=== PATIENT | female | born 1965 | race Caucasian/White ===

== ENCOUNTER 2018-12-26 21:59 | Emergency (ER) | payer MEDICARE ==
[~2018-12-26] VITALS: Ht 162.6 cm; Wt 59.1 kg
[~2018-12-26 21:59] MED LIST: ALPR-624 PO; AMITRIPTYLINE; HYDR-4353 PO; OMEP40CA13 PO; THYR60TA PO; TOP100T PO
[2018-12-26] MEDS ORDERED: ALPR-624 PO (22:27)
[2018-12-26] MEDS ORDERED: AMPH10TA2 PO (22:27)
[2018-12-26] MEDS ORDERED: ONDA4TAB12 PO (22:27)
[2018-12-26] MEDS ORDERED: BUPR1PAT TOP (23:09)
[2018-12-26 23:24] LABS: BASOPHILS % (AUTO) 0.5 % (0-1); EOSINOPHILS % (AUTO) 0.6 % (0-6); HEMATOCRIT 38.3 % (35.0-45.0); HEMOGLOBIN 13.3 g/dl (12.0-16.0); LYMPHOCYTES # (AUTO) 2.3 X10'3 (1.1-4.8); LYMPHOCYTES % (AUTO) 36.6 % (21-51); MEAN CORPUSCULAR HEMOGLOBIN 30.9 PG (27.0-31.0); MEAN CORPUSCULAR HGB CONC 34.7 g/dL (33.0-36.5); MEAN CORPUSCULAR VOLUME 88.9 FL (78-98); MEAN PLATELET VOLUME 7.1 FL (7.4-10.4); MONOCYTES # (AUTO) 0.5 X10'3 (0-0.9); MONOCYTES % (AUTO) 7.3 % (2-12); NEUTROPHILS # (AUTO) 3.5 X10'3 (1.8-7.7); PLATELET COUNT 254 X10'3 (140-440); RED CELL DISTRIBUTION WIDTH 13.8 % (11.5-14.5); WHITE BLOOD COUNT 6.4 X10'3 (4.5-11.0)
[2018-12-26] MEDS ORDERED: LIDOcaine 1% w/EPI 1:200,000 injection 10mL vial IM ONE (23:30)
[2018-12-26] MEDS ORDERED: LIDOcaine 1% W/epiNEPHrine 1:100,000 20ml vial IJ ONE (23:30)
[2018-12-26 23:46] LABS: ALANINE AMINOTRANSFERASE 23 U/L (12-78); ALBUMIN 3.7 G/DL (3.4-5.0); ALBUMIN/GLOBULIN RATIO 1.1 (1.1-1.5); ALKALINE PHOSPHATASE 73 IU/L (46-116); ANION GAP 9 (8-16); ASPARTATE AMINO TRANSFERASE 38 U/L (10-37); BILIRUBIN,TOTAL 0.1 MG/DL (0.1-1.0); BLOOD UREA NITROGEN 11 MG/DL (7-18); BUN/CREATININE RATIO 15.7 (6.6-38.0); CALCIUM 8.5 MG/DL (8.5-10.1); CHLORIDE 109 MMOL/L (99-107); ETHANOL 0.138 GM/DL (0.0-0.010); GLUCOSE 91 MG/DL (70-104); POTASSIUM 3.6 MMOL/L (3.5-5.1); SODIUM 146 MMOL/L (135-145); TOTAL CARBON DIOXIDE 27.8 MMOL/L (24-32); TOTAL PROTEIN 7.2 G/DL (6.4-8.2); eGFR 88 ML/MIN
[2018-12-27 00:06] LABS: URINE HCG NEGATIVE (NEG)
[2018-12-27 00:18] LABS: URINE AMPHETAMINE SCREEN NEGATIVE (Neg); URINE BARBITUATE SCREEN NEGATIVE (Neg); URINE BENZODIAZEPINES SCREEN POSITIVE (Neg); URINE CANNABINOID SCREEN NEGATIVE (Neg); URINE COCAINE SCREEN NEGATIVE (Neg); URINE METHADONE SCREEN NEGATIVE (Neg); URINE OPIATE SCREEN NEGATIVE (Neg); URINE PHENCYCLIDINE SCREEN NEGATIVE (Neg)
[2018-12-27] MEDS ORDERED: ondansetron 4mg rapidly disintigrating tab PO PRN (01:05)
--- NOTE | 2018-12-27 01:09 | NUR ---
Received report from NOAM Casey.
--- NOTE | 2018-12-27 01:13 | NUR ---
Pt moved to ED overflow bed 21 by NOAM Gonzalez.
--- NOTE | 2018-12-27 01:13 | NUR ---
The patient ambulated to bed 21 with steady gait. She was accompanied by NOAM Casey. The patient is in green scrubs and is oriented to the unit. She has been provided a pitcher of water and warm blankets.
--- NOTE | 2018-12-27 01:28 | NUR ---
Pt given fresh water, orientated to unit and given warm blankets for comfort.
--- NOTE | 2018-12-27 02:36 | NUR ---
The patient is sleeping on her right side. No distress noted.
--- NOTE | 2018-12-27 03:51 | NUR ---
PATIENT'S PACKET WAS SENT TO [facility] AT 01:25AM
--- NOTE | 2018-12-27 05:37 | NUR ---
The patient is sleeping in the supine position. Resp. unlabored. No s/s of distress.
--- NOTE | 2018-12-27 06:55 | NUR ---
Report received from Jean. SANTACRUZ. Pt is resting in bed peacefully at this time with no distress observed . Will conitnue to monitor.
--- NOTE | 2018-12-27 08:29 | NUR ---
Pt is sitting in bed eating breakfast. She denies needs at this time. No distress observed. Will conitnue to monitor.
[2018-12-27] MEDS ORDERED: ibuprofen 200mg tablet PO ONE (08:45)
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
--- NOTE | 2018-12-27 10:55 | NUR ---
Pt is in bed speaking to Shereen [facility] clinician. No distress noted. Will abimael Addendum: 12/27/18 at 1107 by GREGORY Will continue to monitor.
--- NOTE | 2018-12-27 11:29 | NUR ---
breaking the assisgned nurse at this time,pt resting in bed quietly no distress noted .
--- NOTE | 2018-12-27 12:31 | NUR ---
Pt is resting in bed peacefully at th is time. No distress observed. Will continue to monitor.
--- NOTE | 2018-12-27 14:30 | NUR ---
pT IS RESTING IN BED PEACEFULLY. NO DISTRESS OBSERVED Addendum: 12/27/18 at 1519 by GREGORY PT IS RESTING IN BED PEACEFULLY AT THIS TIME. NO DISTRESS OBSERVED. PT ATE ALL OF HER LUNCH. WILL CONTINUE TO MONITOR.
--- NOTE | 2018-12-27 15:19 | NUR ---
PT'S DAUGHTER AND MOTHER ARE AT BEDSIDE VISITING.
--- NOTE | 2018-12-27 17:10 | NUR ---
Pt is sitting up in bed visiting with male visitor. Received phone call from [facility] charger, [place], and Dr. Coon has accepted this Pt to be admitted to the [facility] floor. Pt is agreeable to this. Will continue to monitor.
[2018-12-27 17:46] VITALS: BP 138/76
--- NOTE | 2018-12-27 18:30 | NUR ---
Received report and assumed care of patient from NOAM Hernandez.
--- NOTE | 2018-12-27 19:46 | NUR ---
The patient appears to be asleep on her right side. Resp. unlabored. No s/s of distress.
[2018-12-27] MEDS ORDERED: ALPRAZolam 0.5mg tablet PO SCH (21:00)
[2018-12-29] MEDS ORDERED: BUPRENORPHINE 15 MCG/HR TP SCH (08:00)
== END 2018-12-27 20:52 ==
LOC: ER 21:59
DX: S51.812A Laceration without foreign body of left forearm, initial encounter (principal); R45.851 Suicidal ideations; I10 Essential (primary) hypertension; E03.9 Hypothyroidism, unspecified; G43.909 Migraine, unspecified, not intractable, without status migrainosus; F41.9 Anxiety disorder, unspecified; F43.10 Post-traumatic stress disorder, unspecified; Z88.6 Allergy status to analgesic agent; Z88.1 Allergy status to other antibiotic agents; Z79.899 Other long term (current) drug therapy; Z86.73 Personal history of transient ischemic attack (TIA), and cerebral infarction without residual deficits; Z86.718 Personal history of other venous thrombosis and embolism; Z98.51 Tubal ligation status; X78.8XXA Intentional self-harm by other sharp object, initial encounter; Y93.89 Activity, other specified; Y92.89 Other specified places as the place of occurrence of the external cause; Y99.8 Other external cause status
CPT/HCPCS: 12001; 12004; 12032; 36415; 80053; 80305; 80320; 81025; 85025; 99285

== ENCOUNTER 2018-12-27 20:47 | Inpatient (IN) | payer MEDICARE, OTHER ==
[~2018-12-27] VITALS: Ht 160 cm; Wt 63.9 kg
[~2018-12-27 20:47] MED LIST changes: -AMITRIPTYLINE; +AMPH10TA2 PO; +BUPR1PAT TOP; -HYDR-4353 PO; -OMEP40CA13 PO; +ONDA4TAB12 PO; -THYR60TA PO; -TOP100T PO
[2018-12-27] MEDS ORDERED: magnesium hydroxide 30ml (MOM) UD suspension PO PRN (21:20)
[2018-12-27] MEDS ORDERED: mag hydrox/Alum hydrox/simeth 30ml oral suspension PO PRN (21:20)
[2018-12-27] MEDS ORDERED: acetaminophen 325mg tablet PO PRN ×2 (21:20)
[2018-12-27] MEDS ORDERED: loperamide 2mg capsule PO PRN (21:20)
[2018-12-27] MEDS ORDERED: LORazepam 0.5 MG tablet PO PRN (21:40)
[2018-12-27] MEDS ORDERED: ondansetron 4mg rapidly disintigrating tab PO PRN (22:25)
[2018-12-28 00:10] VITALS: BP 145/84
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
[2018-12-28 07:29] LABS: HEMOGLOBIN A1C 5.2 % (4.5-6.2)
[2018-12-28 08:00] VITALS: BP 120/72
[2018-12-28] MEDS ORDERED: dextroamphetamine/amphetamine 10mg tablet PO SCH (08:00)
--- NOTE | 2018-12-28 09:52 | NUR ---
Malnutrition consult: Patient's wt is stable with documented wt hx of 70.5 kg 06/02/15 and 64.7 kg 09/30/16, current documented wt is 63.9 kg and all weights were obtained with standing scale. Pt currently on vegan diet documented with average 50% PO intake firt meal. Per RN notes pt with more frequent memory loss and is currently documented as confused. Pt with no decrease in muscle strength and no edema. Pt currently does not meet criteria for malnutrition at this time. Will continue to follow. Addendum: 12/28/18 at [address] Amended: Links added.
[2018-12-28 09:56] LABS: CHOL/HDL RATIO 3.2 (0.00-4.99); CHOLESTEROL 214 MG/DL (0-200); HDL CHOLESTEROL 66 MG/DL (35-60); LDL CHOLESTEROL 119 MG/DL (50-100); TRIGLYCERIDES 181 MG/DL (20-135)
--- NOTE | 2018-12-28 16:39 | NUR ---
Met with Ct to complete Psychosocial Assessment. She denied any current SI. She reported she wants to return home in the next day or two. She reported she may stay with her mother for a couple days before returning to her home. She reported she sees a therapist at the [facility] for EMDR and sees Susie Nina at [facility] for her medications. She thinks she has an upcoming appt at [facility]. GARCÍA Gallagher
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
[2018-12-28] MEDS: hydrOXYzine 25 MG tablet PO PRN (17:27)
[2018-12-28] MEDS ORDERED: ibuprofen tablet 400 MG TABLET PO PRN (19:35)
[2018-12-28 20:00] VITALS: BP 117/71
[2018-12-28] MEDS ORDERED: ALPRAZolam 0.5mg tablet PO SCH (21:00)
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
[2018-12-29 07:54] VITALS: BP 141/62
[2018-12-29] MEDS: SUMAtriptan 25 MG tablet PO PRN ×2 (15:00→15:19)
--- NOTE | 2018-12-29 15:44 | NUR ---
Called [facility] to make follow up appt for Ct. Ct already has an appt with Susie Nina on 01/11/19 at 10:15 am. GARCÍA Gallagher
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
[2018-12-29 20:06] VITALS: BP 138/78
[2018-12-29] MEDS: hydrOXYzine 25 MG tablet PO PRN (20:17)
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
[2018-12-30] MEDS ORDERED: LORazepam 1 MG tablet PO ONE (01:15)
[2018-12-30] MEDS ORDERED: temazepam 15mg capsule PO PRN (01:15)
[2018-12-30 07:39] VITALS: BP 126/72
[2018-12-30] MEDS ORDERED: BUTRANS 15 MCG/HR TOP SCH (08:25)
--- NOTE | 2018-12-30 14:50 | NUR ---
Nursing Discharge Note Patient is escorted off the unit at 1435 accompanied by this RN and patients mother Leigha. Patient will be transported home by her mother. All valuables, including medications are provided back to patient. Followup instructions are gone over with patient and printed handout provided. Patient states that she feels good and feels comfortable going home today. Patients mood is happy and her affect is bright, she has improved since admit. Patient is not under any physical or emotional distress. Nicotine replacement not provided as patient is not a smoker.
== END 2018-12-30 14:35 | disposition home or self-care (01) | DRG 881 ==
LOC: ADULT MH 20:47
PROVIDERS: ADMIT Psychiatry & Neurology Psychiatry; ATTEND Psychiatry & Neurology Psychiatry
DX: F32.9 Major depressive disorder, single episode, unspecified (principal); E87.0 Hyperosmolality and hypernatremia; A69.20 Lyme disease, unspecified; F43.10 Post-traumatic stress disorder, unspecified; F41.1 Generalized anxiety disorder; G43.909 Migraine, unspecified, not intractable, without status migrainosus; F41.0 Panic disorder [episodic paroxysmal anxiety]; E78.5 Hyperlipidemia, unspecified; Z86.73 Personal history of transient ischemic attack (TIA), and cerebral infarction without residual deficits; Z98.82 Breast implant status; Z87.442 Personal history of urinary calculi
CPT/HCPCS: 36415; 80053; 80061; 80305; 80320; 81025; 83036; 85025; 87081; Z7610

== ENCOUNTER 2019-01-16 19:09 | Emergency (ER) | payer MEDICARE ==
[~2019-01-16] VITALS: Ht 162.6 cm; Wt 60.5 kg
[2019-01-16 19:51] LABS: URINE HCG NEGATIVE (NEG)
[2019-01-16 19:56] LABS: BASOPHILS % (AUTO) 0.5 % (0-1); EOSINOPHILS # (AUTO) 0.1 X10'3 (0-0.9); HEMATOCRIT 40.3 % (35.0-45.0); HEMOGLOBIN 13.9 g/dl (12.0-16.0); LYMPHOCYTES % (AUTO) 33.3 % (21-51); MEAN CORPUSCULAR HEMOGLOBIN 30.9 PG (27.0-31.0); MEAN CORPUSCULAR HGB CONC 34.4 g/dL (33.0-36.5); MEAN CORPUSCULAR VOLUME 89.8 FL (78-98); MONOCYTES # (AUTO) 0.4 X10'3 (0-0.9); MONOCYTES % (AUTO) 6.8 % (2-12); NEUTROPHILS # (AUTO) 3.5 X10'3 (1.8-7.7); NEUTROPHILS % (AUTO) 58.4 % (42-75); PLATELET COUNT 302 X10'3 (140-440); RED BLOOD COUNT 4.49 X10'6 (4.20-5.60); RED CELL DISTRIBUTION WIDTH 13.5 % (11.5-14.5); WHITE BLOOD COUNT 6.1 X10'3 (4.5-11.0)
[2019-01-16 20:04] LABS: ALANINE AMINOTRANSFERASE 21 U/L (12-78); ALBUMIN 3.7 G/DL (3.4-5.0); ALKALINE PHOSPHATASE 71 IU/L (46-116); ANION GAP 9 (8-16); ASPARTATE AMINO TRANSFERASE 39 U/L (10-37); BILIRUBIN,TOTAL 0.1 MG/DL (0.1-1.0); BLOOD UREA NITROGEN 9 MG/DL (7-18); BUN/CREATININE RATIO 12.9 (6.6-38.0); CALCIUM 8.2 MG/DL (8.5-10.1); CHLORIDE 108 MMOL/L (99-107); GLUCOSE 89 MG/DL (70-104); SODIUM 144 MMOL/L (135-145); TOTAL CARBON DIOXIDE 26.6 MMOL/L (24-32); TOTAL PROTEIN 7.5 G/DL (6.4-8.2); eGFR 88 ML/MIN
[2019-01-16 20:06] LABS: URINE AMPHETAMINE SCREEN NEGATIVE (Neg); URINE BARBITUATE SCREEN NEGATIVE (Neg); URINE BENZODIAZEPINES SCREEN POSITIVE (Neg); URINE CANNABINOID SCREEN NEGATIVE (Neg); URINE COCAINE SCREEN NEGATIVE (Neg); URINE METHADONE SCREEN NEGATIVE (Neg); URINE OPIATE SCREEN NEGATIVE (Neg); URINE PHENCYCLIDINE SCREEN NEGATIVE (Neg)
[2019-01-16 20:13] LABS: ETHANOL 0.091 GM/DL (0.0-0.010)
[2019-01-16] MEDS ORDERED: RIZA10TA27 PO (22:36)
[2019-01-16] MEDS ORDERED: LISI-600 PO (22:38)
[2019-01-16] MEDS ORDERED: RIZATRIPTAN BENZOATE 10 MG PO PRN (23:05)
--- NOTE | 2019-01-17 05:18 | NUR ---
Packet faxed to [facility]. Unable to confirm receipt of packet as [id number] hours.
--- NOTE | 2019-01-17 06:37 | NUR ---
Received report and assumed care of patient from NOAM Kimble.
[2019-01-17] MEDS ORDERED: lisinopril 5mg tablet PO SCH (08:00)
[2019-01-17 13:38] VITALS: BP 145/76
[2019-01-17] MEDS ORDERED: ALPRAZolam 0.5mg tablet PO SCH (21:00)
[2019-01-22] MEDS ORDERED: Buprenorphine (Butrans) 1 PATCH TOP SCH (08:00)
== END 2019-01-17 14:03 | disposition home or self-care (01) ==
LOC: ER 19:10
DX: R45.851 Suicidal ideations (principal); G43.909 Migraine, unspecified, not intractable, without status migrainosus; I10 Essential (primary) hypertension; E03.9 Hypothyroidism, unspecified; F41.9 Anxiety disorder, unspecified; Z86.73 Personal history of transient ischemic attack (TIA), and cerebral infarction without residual deficits; Z98.51 Tubal ligation status; Z88.5 Allergy status to narcotic agent; Z88.1 Allergy status to other antibiotic agents; Z79.899 Other long term (current) drug therapy
CPT/HCPCS: 36415; 80053; 80305; 80320; 81025; 84443; 85025; 99285

== ENCOUNTER 2023-10-28 09:32 | Emergency (ER) | payer MEDICARE, SELFPAY ==
[~2023-10-28] VITALS: Ht 162.6 cm; Wt 72.0 kg
[~2023-10-28 09:32] MED LIST changes: -AMPH10TA2 PO; +LISI20TA28 PO; -ONDA4TAB12 PO; +RIZA-5 PO
[2023-10-28 09:51] VITALS: BP 173/76; PULSE 80; RESP 16; TEMP 98.3; O2SAT 96
[2023-10-28 09:52] LABS: BASOPHILS % (AUTO) 0.5 % (0-1); EOSINOPHILS % (AUTO) 0.4 % (0-6); LYMPHOCYTES # (AUTO) 1.4 X10'3 (1.1-4.8); LYMPHOCYTES % (AUTO) 18.6 % (21-51); MEAN CORPUSCULAR HEMOGLOBIN 31.4 PG (27.0-31.0); MEAN CORPUSCULAR HGB CONC 34.7 g/dL (33.0-36.5); MEAN CORPUSCULAR VOLUME 90.3 FL (78-98); MEAN PLATELET VOLUME 7.1 FL (7.4-10.4); MONOCYTES # (AUTO) 0.5 X10'3 (0-0.9); MONOCYTES % (AUTO) 7.3 % (2-12); NEUTROPHILS # (AUTO) 5.4 X10'3 (1.8-7.7); NEUTROPHILS % (AUTO) 73.2 % (42-75); PLATELET COUNT 282 X10'3 (140-440); RED BLOOD COUNT 4.76 X10'6 (4.20-5.60); RED CELL DISTRIBUTION WIDTH 12.9 % (11.5-14.5); WHITE BLOOD COUNT 7.4 X10'3 (4.5-11.0)
[2023-10-28 10:07] LABS: ALANINE AMINOTRANSFERASE 138 U/L (12-78); ALBUMIN 3.9 G/DL (3.4-5.0); ALBUMIN/GLOBULIN RATIO 0.9 (1.1-1.5); ALKALINE PHOSPHATASE 99 IU/L (46-116); ANION GAP 13 (8-16); ASPARTATE AMINO TRANSFERASE 89 U/L (10-37); BILIRUBIN,TOTAL 0.4 MG/DL (0.1-1.0); BLOOD UREA NITROGEN 12 MG/DL (7-18); BUN/CREATININE RATIO 14.8 (10.0-20.0); CALCIUM 9.2 MG/DL (8.5-10.1); CHLORIDE 104 MMOL/L (99-107); CREATININE 0.81 MG/DL (0.40-0.90); GLUCOSE 124 MG/DL (70-104); POTASSIUM 3.7 MMOL/L (3.5-5.1); SODIUM 141 MMOL/L (135-145); TOTAL CARBON DIOXIDE 24.5 MMOL/L (24-32); TOTAL PROTEIN 8.1 G/DL (6.4-8.2); eCRCL 66 ML/MIN; eGFR 73 ML/MIN
[2023-10-28 10:15] LABS: PRO BRAIN NATRIURETIC PEPTIDE 88 PG/ML (0-125)
--- NOTE | 2023-10-29 10:40 | NUR ---
PT WENT TO [facility] TO GET BACK ON HER BP MEDS, MAGNESIUM AND POTASSIUM.
== END 2023-10-28 12:16 | disposition left against medical advice (07) ==
LOC: ER 09:33
DX: R07.9 Chest pain, unspecified (principal); M25.562 Pain in left knee; Z88.8 Allergy status to other drugs, medicaments and biological substances; Z53.21 Procedure and treatment not carried out due to patient leaving prior to being seen by health care provider
CPT/HCPCS: 36415; 80053; 83880; 84484; 85025; 93005